=== PATIENT | female | born 1960 | race Caucasian/White ===

== ENCOUNTER 2016-06-14 15:54 | Observation (INO) | payer OTHER ==
[~2016-06-14] VITALS: Ht 157.5 cm; Wt 110.6 kg
--- NOTE | 2016-06-14 16:41 | DIAGNOSTIC IMAGING REPORT ---
PROCEDURE: XR CHEST 1 VIEW INDICATION: CHEST PAIN TECHNIQUE: Portable AP view 04:18 p.m. COMPARISON: None. FINDINGS: Lungs are clear. Mild cardiomegaly. Thorax is normal. IMPRESSION: 1. Mild cardiomegaly. Lungs clear.
--- NOTE | 2016-06-14 17:34 | ED ORDER SUMMARY ---
..... Patient: MAYRA BOONE OrderSheet [facility] VisitID: [id number] [place] [address] 55y, F Registration Date/Time: 06/14/2016 ORDER SHEET Weight: 113.3 kg (stated) Allergies: LIsinopril, Sulfa Antibiotics GENERAL ORDERS: Chest 1V Urgent (16:06 06/14/2016 Roberta SON) (Ack 16:11 BANDARoerdiaz) (16:17 KWilliams R.N.) [employer]working [employer] Hand (Continuous) (16:06/14/2016 Roberta SON) (16:19 KPage-Kuchan R.N.) CBC w Diff Urgent (16:06/14/2016 Roberta SON) (Ack 16:11 Shawn) (16:17 KWilliams R.N.) CMP Urgent (16:06/14/2016 Roberta SON) (Ack 16:11 BANDARoerner) (16:17 KWilliams R.N.) UA-Culture if indicated Urgent (16:06/14/2016 Roberta SON) (Ack 16:11 Shawn) (Collected 16:20 KPage-Kuchan R.N.) (16:21 KPage-Kuchan R.N.) PT with INR Urgent (16:06/14/2016 Roberta SON) (Ack 16:11 Shawn) (16:17 KWmedardoams R.N.) PTT Urgent (16:06/14/2016 Roberta SON) (Ack 16:11 Shawn) (16:17 KWilliams R.N.) Amylase Urgent (16:06/14/2016 Roberta SON) (Ack 16:11 BANDARoeyvette) (16:17 KWilliams R.N.) Lipase Urgent (16:06/14/2016 Roberta SON) (Ack 16:11 Shawn) (16:17 KWilliams R.N.) D-Dimer Urgent (16:06/14/2016 Roberta SON) (Ack 16:11 Shawn) (16:17 KWilliams R.N.) CPK Urgent (16:07 06/14/2016 Roberta SON) (Ack 16:11 Shawn) (16:17 Silvestre R.N.) Troponin-I Urgent (16:07 06/14/2016 Roberta SON) (Ack 16:11 Shawn) (16:17 Silvestre R.N.) BNP Urgent (16:07 06/14/2016 Roberta SON) (Ack 16:11 Shawn) (16:17 Silvestre R.N.) Oxygen (2 L/min) (NC) (16:07 06/14/2016 Roberta SON) (16:20 Pippa R.N.) Pulse oximeter (16:07 06/14/2016 Roberta SON) (16:17 Silvestre R.N.) EKG - ER Stat (16:07 06/14/2016 Roberta SON) (Ack 16:11 Shawn) (16:11 PWeiler ER Tech1) MEDICATION ORDERS: Aspirin PO 325 mg (NOW) (16:07 06/14/2016 Roberta SON) (16:19 KPaAparna R.N.) NitroGLYCERIN SL 0.4 mg (NOW, x3 PRN Chest Pain) (17:26 06/14/2016 Roberta SON) (Ack 17:34 KPakristian-Kia R.N.) (17:40 KPaAparna R.N.) IV FLUIDS: IV Saline Lock (16:07 06/14/2016 Roberta SON) (16:17 Silvestre R.N.) ORDER SHEET NOTES: [Electronically signed by Eric Ferraro MD (21:51 06/14/2016)] [Electronically signed by Beni Schmid R.N. (14:06/15/2016)] [Electronically locked/signed by Beni Schmid R.N. (14:06/15/2016)]
--- NOTE | 2016-06-14 17:34 | ED CLINICAL REPORT ---
Clinical Report - Physicians/Mid Levels [facility] [address] [place] [place] [address] 06/14/2016 15:56 Patient: MAYRA BOONE Time Seen: 16:03. Arrived- By private vehicle. Historian- patient. HISTORY OF PRESENT ILLNESS Chief Complaint: CHEST PAIN. At its maximum, severity described as 7 / 10. When seen in the E.D., severity described as 5 / 10. Modifying factors- (improves with lying flat). Not relieved by antacids. This started today at about 6 AM and is still present but is better now. It was abrupt in onset and has been constant and waxing/waning. Onset during sleep. It is described as sharp and it is described as located in the central chest area and radiating to the upper back. The patient has had nausea. No vomiting, difficulty breathing or diaphoresis. Similar symptoms previously: None. REVIEW OF SYSTEMS No chills, fever, sweats, calf pain or abdominal pain. No black stools, bloody stools, constipation, diarrhea or vomiting. She has had a cough (she attributes this to a recent cold). She has had pedal edema involving the left leg (for a couple of weeks). She has had mild nausea (she attributes this to her diabetes - chronically). She has had diabetic symptoms, including polydipsia, polyuria, polyphagia and fatigue. All systems otherwise negative, except as recorded above. PAST HISTORY PCP - Pagan at [facility]. Problems: Hypertension. Diabetes Mellitus. Additional Surgeries: Breast reduction. Carpal Tunnel Surgery. Hysterectomy. Knee Surgery. Renal Stone Manipulation. Medications: Losartan Potassium Oral (pt does not know dose). Hydrochlorothiazide Oral (pt does not know dose). Atorvastatin Calcium Oral (pt does not know dose). Allergies: LIsinopril. Sulfa Antibiotics. SOCIAL HISTORY Never smoker. No alcohol use or drug use. Residence: [facility] she lives with a family member. 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 FAMILY HISTORY No history of aortic aneurysm or dissection. Premature onset heart disease in first-degree relative (father and sibling). mother due to complications with a hiatal hernia. ADDITIONAL NOTES The nursing notes have been reviewed. PHYSICAL EXAM Vital Signs: 06/14/2016 16:07 BP: 128/58. HR: 87. RR: 19. O2 saturation: 97%. Temp: 98.7 F. Pain level now: 09/12. Have been reviewed. Appearance: Alert. She is morbidly obese. Eyes: Pupils equal, round and reactive to light. ENT: Pharynx normal. Neck: Normal inspection. Neck supple. CVS: Normal heart rate and rhythm. Heart sounds normal. Respiratory: No respiratory distress. Breath sounds normal. Abdomen: Soft and nontender. Bowel sounds normal. No organomegaly. No mass. Obese. Back: Normal external inspection. No CVA tenderness. Skin: Skin warm and dry. Normal skin color. No rash. Normal skin turgor. Extremities: Extremities exhibit normal ROM. No calf tenderness. No lower extremity edema. LABS, X-RAYS, AND EKG EKG: Rate: 82. Non-specific ST segment / T wave abnormalities. Changes present when compared to prior EKG. (09 October 2013 from [facility]). Chest X-ray: (IMPRESSION: 1. Mild cardiomegaly. Lungs clear.). The X-rays were interpreted by the radiologist and contemporaneously by me. Laboratory Tests: CBC w Diff: (ORLIN: 06/14/2016 16:05) ( MsgRcvd 06/14/2016 16:22) Final results Test Result Flag Units (Reference) WHITE BLOOD COUNT 7.6 K/uL (4.5-11.5) RED BLOOD COUNT 4.86 M/uL (4.00-5.20) HEMOGLOBIN 13.9 gm/dL (12.0-16.0) HEMATOCRIT 41.7 % (36.0-46.0) MEAN CELL VOLUME 86 fL (80-100) MEAN CORPUSCULAR HGB 29 pg (26-34) MEAN CORPUSCULAR HGB CONC 33 g/dL (31-37) RED CELL DISTRIBUTION WIDTH 13.6 % (11.6-14.8) PLATELET COUNT 255 K/uL (150-400) NEUTROPHIL % 59.7 % (50-75) LYMPH % 30.5 % (25-40) MONO % 6.8 % (3-14) EOSINOPHIL % 2.5 % (0-4) BASOPHIL % 0.5 % (0-2) PT with INR: (ORLIN: 06/14/2016 16:05) ( [facility] 16[facility]39) Final results Test Result Flag Units (Reference) INR 1.0 (0.8-1.2) Low Intensity Therapy: INR 1.5-2.0 PT range 18.5-23.1Mod.Intensity Therapy: INR 2.0-3.0 PT range 23.1-31.5High Intensity Therapy: INR 2.5-3.5 PT range 27.4-35.5High Intensity Therapy 2: INR 3.0-4.0 PT range 31.5-39.3 APTT 28 SECONDS (24-34) D-DIMER QUANTITATIVE 0.45 ug/mLFEU (0.27-0.52) The primary value of this quantitative assay relates toits negative predictive value (i.e. exclusion) of pulmonaryembolism/deep vein thrombosis/DIC.Elevated levels of d-dimer may also occur with:, age, cancer, inflammation, liver disease,post-op, infection, hematoma, coronary disease, peripheralarteriopathy, bleeding disorders and thrombolytic treatment.Results should be correlated with other clinical andradiological data.Testing Methodology: Latex Immunoassay BNP: (ORLIN: 06/14/2016 16:05) ( [facility] 06/14/2016 16:44) Final results Test Result Flag Units (Reference) B-TYPE NATRIURETIC PEPTIDE 28.4 pg/ml (5-100) CMP: (ORLIN: 06/14/2016 16:05) ( [facility] 06/14/2016 16:49) Final results Test Result Flag Units (Reference) GLUCOSE 132 H mg/dL (70-110) BUN 24 H mg/dL (7-18) CREATININE 0.9 mg/dL (0.6-1.3) Estimated GFR >60 mL/min Estimated GFR- >60 mL/min Note: Persistent reduction over 3 months in eGFR<60 mL/min/1.73 m2 defines CKD. Patients with eGFR values>=60 mL/min/1.73 m2 may also have CKD if evidence ofpersistent proteinuria. Additional information may be foundat www.kidney.org. SODIUM 139 mmol/L (136-145) POTASSIUM 3.3 L mmol/L (3.5-5.1) CHLORIDE 103 mmol/L (98-107) CARBON DIOXIDE 23 mmol/L (21-32) CALCIUM 9.4 mg/dL (8.5-10.1) TOTAL PROTEIN 8.3 H g/dL (6.4-8.2) ALBUMIN 3.7 g/dL (3.3-5.0) BILIRUBIN, TOTAL 0.5 mg/dL (0.0-1.0) ALKALINE PHOSPHATASE 96 U/L (46-116) AST (SGOT) 31 U/L (15-37) ALT (SGPT) 42 U/L (12-78) LIPASE 175 U/L (73-393) AMYLASE 36 U/L (25-115) CPK 129 U/L (24-260) TROPONIN I <0.05 ng/mL (0.00-1.5) TROPONIN REFERENCE RANGE:<0.1 NEGATIVE0.1-1.5 INDETERMINANT>1.5 POSITIVE . PROGRESS AND PROCEDURES Course of Care: I discussed the case initially with Dr. Blunt Marcia a oil burner technician at [facility]. She is uncertain whether Dr. Chaudhary will be rounding here tomorrow. Additionally it is not clear whether stress testing will be available in our facility tomorrow. She did state that the patient could follow up tomorrow for an office visit with Dr. Bryson to arrange further testing assuming that serial enzymes are negative. However, given her insurance with [facility] it is not clear whether they would pay for this in an outpatient setting. Therefore, I discussed the case with Dr. Larry Eli, a oil burner technician at [facility]. He did say that if the patient is not able to have a stress test and echo at our facility tomorrow and is not able to do it with Dr. Bryson because of insurance reasons that she should contact [facility]'s cardiology department at [phone] and they should be able to arrange completion of her studies. Patient is stable. Discussed case with hospitalist, (Luis). Reviewed test results and need for additional work-up. Agreed upon need for patient follow-up and decision to place in observation. Health care provider will see patient in hospital. Patient/family counseled. Old medical records ordered. Disposition orders written (in 2houses). Disposition: Admitted. Observation. CLINICAL IMPRESSION Chest pain. (Electronically signed by Eric Ferraro MD 06/14/2016 21:51)
--- NOTE | 2016-06-14 17:34 | ED CLINICAL REPORT ---
Clinical Report - Physicians/Mid Levels [facility] [address] [place] [address] 06/14/2016 15:56 Patient: MAYRA BOONE Time Seen: 16:03. Arrived- By private vehicle. Historian- patient. HISTORY OF PRESENT ILLNESS Chief Complaint: CHEST PAIN. At its maximum, severity described as 7 / 10. When seen in the E.D., severity described as 5 / 10. Modifying factors- (improves with lying flat). Not relieved by antacids. This started today at about 6 AM and is still present but is better now. It was abrupt in onset and has been constant and waxing/waning. Onset during sleep. It is described as sharp and it is described as located in the central chest area and radiating to the upper back. The patient has had nausea. No vomiting, difficulty breathing or diaphoresis. Similar symptoms previously: None. REVIEW OF SYSTEMS No chills, fever, sweats, calf pain or abdominal pain. No black stools, bloody stools, constipation, diarrhea or vomiting. She has had a cough (she attributes this to a recent cold). She has had pedal edema involving the left leg (for a couple of weeks). She has had mild nausea (she attributes this to her diabetes - chronically). She has had diabetic symptoms, including polydipsia, polyuria, polyphagia and fatigue. All systems otherwise negative, except as recorded above. PAST HISTORY PCP - Pagan at [facility]. Problems: Hypertension. Diabetes Mellitus. Additional Surgeries: Breast reduction. Carpal Tunnel Surgery. Hysterectomy. Knee Surgery. Renal Stone Manipulation. Medications: Losartan Potassium Oral (pt does not know dose). Hydrochlorothiazide Oral (pt does not know dose). Atorvastatin Calcium Oral (pt does not know dose). Allergies: LIsinopril. Sulfa Antibiotics. SOCIAL HISTORY Never smoker. No alcohol use or drug use. Residence: [facility] she lives with a family member. 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 FAMILY HISTORY No history of aortic aneurysm or dissection. Premature onset heart disease in first-degree relative (father and sibling). mother due to complications with a hiatal hernia. ADDITIONAL NOTES The nursing notes have been reviewed. PHYSICAL EXAM Vital Signs: 06/14/2016 16:07 BP: 128/58. HR: 87. RR: 19. O2 saturation: 97%. Temp: 98.7 F. Pain level now: 09/12. Have been reviewed. Appearance: Alert. She is morbidly obese. Eyes: Pupils equal, round and reactive to light. ENT: Pharynx normal. Neck: Normal inspection. Neck supple. CVS: Normal heart rate and rhythm. Heart sounds normal. Respiratory: No respiratory distress. Breath sounds normal. Abdomen: Soft and nontender. Bowel sounds normal. No organomegaly. No mass. Obese. Back: Normal external inspection. No CVA tenderness. Skin: Skin warm and dry. Normal skin color. No rash. Normal skin turgor. Extremities: Extremities exhibit normal ROM. No calf tenderness. No lower extremity edema. LABS, X-RAYS, AND EKG EKG: Rate: 82. Non-specific ST segment / T wave abnormalities. Changes present when compared to prior EKG. (09 October 2013 from [facility]). Chest X-ray: (IMPRESSION: 1. Mild cardiomegaly. Lungs clear.). The X-rays were interpreted by the radiologist and contemporaneously by me. Laboratory Tests: CBC w Diff: (ORLIN: 06/14/2016 16:05) ( MsgRcvd 06/14/2016 16:22) Final results Test Result Flag Units (Reference) WHITE BLOOD COUNT 7.6 K/uL (4.5-11.5) RED BLOOD COUNT 4.86 M/uL (4.00-5.20) HEMOGLOBIN 13.9 gm/dL (12.0-16.0) HEMATOCRIT 41.7 % (36.0-46.0) MEAN CELL VOLUME 86 fL (80-100) MEAN CORPUSCULAR HGB 29 pg (26-34) MEAN CORPUSCULAR HGB CONC 33 g/dL (31-37) RED CELL DISTRIBUTION WIDTH 13.6 % (11.6-14.8) PLATELET COUNT 255 K/uL (150-400) NEUTROPHIL % 59.7 % (50-75) LYMPH % 30.5 % (25-40) MONO % 6.8 % (3-14) EOSINOPHIL % 2.5 % (0-4) BASOPHIL % 0.5 % (0-2) PT with INR: (ORLIN: 06/14/2016 16:05) ( [facility] 06/14/2016 16:39) Final results Test Result Flag Units (Reference) INR 1.0 (0.8-1.2) Low Intensity Therapy: INR 1.5-2.0 PT range 18.5-23.1Mod.Intensity Therapy: INR 2.0-3.0 PT range 23.1-31.5High Intensity Therapy: INR 2.5-3.5 PT range 27.4-35.5High Intensity Therapy 2: INR 3.0-4.0 PT range 31.5-39.3 APTT 28 SECONDS (24-34) D-DIMER QUANTITATIVE 0.45 ug/mLFEU (0.27-0.52) The primary value of this quantitative assay relates toits negative predictive value (i.e. exclusion) of pulmonaryembolism/deep vein thrombosis/DIC.Elevated levels of d-dimer may also occur with:, age, cancer, inflammation, liver disease,post-op, infection, hematoma, coronary disease, peripheralarteriopathy, bleeding disorders and thrombolytic treatment.Results should be correlated with other clinical andradiological data.Testing Methodology: Latex Immunoassay BNP: (ORLIN: 06/14/2016 16:05) ( [facility] 06/14/2016 16:44) Final results Test Result Flag Units (Reference) B-TYPE NATRIURETIC PEPTIDE 28.4 pg/ml (5-100) CMP: (ORLIN: 06/14/2016 16:05) ( [facility] 06/14/2016 16:49) Final results Test Result Flag Units (Reference) GLUCOSE 132 H mg/dL (70-110) BUN 24 H mg/dL (7-18) CREATININE 0.9 mg/dL (0.6-1.3) Estimated GFR >60 mL/min Estimated GFR- >60 mL/min Note: Persistent reduction over 3 months in eGFR<60 mL/min/1.73 m2 defines CKD. Patients with eGFR values>=60 mL/min/1.73 m2 may also have CKD if evidence ofpersistent proteinuria. Additional information may be foundat [email or web address].org. SODIUM 139 mmol/L (136-145) POTASSIUM 3.3 L mmol/L (3.5-5.1) CHLORIDE 103 mmol/L (98-107) CARBON DIOXIDE 23 mmol/L (21-32) CALCIUM 9.4 mg/dL (8.5-10.1) TOTAL PROTEIN 8.3 H g/dL (6.4-8.2) ALBUMIN 3.7 g/dL (3.3-5.0) BILIRUBIN, TOTAL 0.5 mg/dL (0.0-1.0) ALKALINE PHOSPHATASE 96 U/L (46-116) AST (SGOT) 31 U/L (15-37) ALT (SGPT) 42 U/L (12-78) LIPASE 175 U/L (73-393) AMYLASE 36 U/L (25-115) CPK 129 U/L (24-260) TROPONIN I <0.05 ng/mL (0.00-1.5) TROPONIN REFERENCE RANGE:<0.1 NEGATIVE0.1-1.5 INDETERMINANT>1.5 POSITIVE . PROGRESS AND PROCEDURES Course of Care: I discussed the case initially with Dr. Blunt Marcia a diet tech at [facility]. She is uncertain whether Dr. Chaudhary will be rounding here tomorrow. Additionally it is not clear whether stress testing will be available in our facility tomorrow. She did state that the patient could follow up tomorrow for an office visit with Dr. Bryson to arrange further testing assuming that serial enzymes are negative. However, given her insurance with [facility] it is not clear whether they would pay for this in an outpatient setting. Therefore, I discussed the case with Dr. Larry Eli, a diet tech at [facility]. He did say that if the patient is not able to have a stress test and echo at our facility tomorrow and is not able to do it with Dr. Bryson because of insurance reasons that she should contact [facility]'s cardiology department at [phone] and they should be able to arrange completion of her studies. Patient is stable. Discussed case with hospitalist, (Luis). Reviewed test results and need for additional work-up. Agreed upon need for patient follow-up and decision to place in observation. Health care provider will see patient in hospital. Patient/family counseled. Old medical records ordered. Disposition orders written (in [employer]). Disposition: Admitted. Observation. CLINICAL IMPRESSION Chest pain. (Electronically signed by Eric Ferraro MD 06/14/2016 21:51)
--- NOTE | 2016-06-14 17:34 | ED NURSING NOTES ---
Clinical Report - Nurses [facility] [address] [place] [address] 06/14/2016 15:56 Patient: MAYRA BOONE TRIAGE Triage time 15:58 Jun 14 2016. Acuity: LEVEL 2. Chief Complaint: SHORTNESS OF BREATH (chest pain ss, describes as "sharp" no change with inspiration with assoc symptoms of mid back pain, nausea and sob). Alert. No acute distress. SEPSIS SCREEN: Sepsis Screen: negative. Negative (no infection suspected/documented). --16:13 Beni Schmid R.N. 16:11 06/14/16. BP: 151/74. HR: 87. RR: 19. O2 saturation: 97%. Temp: 98.1 F. Pain level now 7/10. --14:01 Beni Schmid R.N. Weight: 113.3 kg stated. Height/Length: 62 inches Per Patient. BMI: 45.7. --16:12 Beni Schmid R.N. Medications Atorvastatin Calcium Oral (pt does not know dose). --16:04 Beni Schmid R.N. Hydrochlorothiazide Oral (pt does not know dose). --16:05 Beni Schmid R.N. Losartan Potassium Oral (pt does not know dose). --16:05 Beni Schmid R.N. Medication/allergy information source: the patient. --16:13 Beni Schmid R.N. Allergies LIsinopril. --16:04 Beni Schmid R.N. Sulfa Antibiotics. --16:04 Beni Schmid R.N. History Onset was abrupt. Started while sleeping. Symptoms are constant and still present (cp woke pt this morning at 0600). She has had difficulty breathing and nausea. ( pt also has a "cold" at this time). Treatment SOLAR CONSULTANT: (omperazole). PAST MEDICAL HX: Diabetes mellitus (pts morning glucose at 0730 today 243, type 2 with insulin). Hypertension. Immunizations: up-to-date. The patient has had a hysterectomy. Denies current . SOCIAL HX: Never smoker. No alcohol use or drug use. No infectious disease exposure. ABUSE ASSESSMENT: No report of abuse. SELF HARM ASSESSMENT: A self harm assessment was performed. The patient answered "no" to the question "Have you recently felt down, depressed, or hopeless?", "Have you noticed less interest or pleasure in doing things?", "Do you have thoughts of harming or killing yourself?", "Are you here because you tried to hurt yourself?", "Have you ever tried to hurt yourself before today?", "Have you recently had thoughts about harming or killing others?" and "Do you have any dangerous items in your possession?". FALL RISK ASSESSMENT: Fall risk assessment completed. No fall risk identified. NUTRITIONAL RISK ASSESSMENT: The nutritional risk assessment revealed no deficiencies. FUNCTIONAL ASSESSMENT: Functional assessment: no impairments noted. LEARNING NEEDS ASSESSMENT: The learning needs assessment revealed no barriers. SKIN INTEGRITY ASSESSMENT: Skin integrity risk assessment completed. No skin integrity risk identified. --16:13 Beni Schmid R.N. ADDITIONAL SURGERIES: Breast reduction. Carpal Tunnel Surgery. Hysterectomy. Knee Surgery. Renal Stone Manipulation. --16:07 Beni Schmid R.N. Interventions ID and allergy band on patient. ID band checked. CHEST PAIN protocol initiated at triage. To treatment room. --16:13 Beni Schmid R.N. PHYSICAL ASSESSMENT GENERAL / NEURO / PSYCH: Alert. Oriented X 4. Appears in no acute distress. HEENT: Mucous membranes are pink. RESPIRATORY: Respirations not labored. Breath sounds within normal limits. CVS: Cardiac rhythm: no ectopy noted (SR). Heart sounds within normal limits. Pulses within normal limits. Capillary refill less than 2 seconds. GI / : Abdomen soft and nontender. EXTREMITIES: Lower extremity edema. pt reports swelling to bilat feet "for the past couple of weeks". SKIN: Skin is warm and dry. --16:14 Beni Schmid R.N. NURSING PROGRESS NOTES phototypesetting equipment monitor, pulse oximeter and NIBP monitor placed on patient; lunchroom monitor- Lead II and V5; monitor alarms on. EKG was performed by a tech and shown to the ED physician. Checked patient name and birthdate. Blood samples drawn from the right antecubital space peripheral IV site with Vacutainer by nurse per protocol ; labeled in presence of the patient and sent to lab: rainbow set. Line flushed with 10 mL normal saline post blood draw. Patient gowned. Head of bed elevated. Reassurance given to the patient. Two patient identifiers checked. Call light placed in reach of patient. Side rails up x 1. Bed placed in lowest position. Brakes of bed on. Patient ready for evaluation- chart flagged. --16:16 Beni Schmid R.N. 16:09 06/14/2016 Aspirin PO Tablets 325 mg given. Allergies verified and confirmed 5 rights. --16:19 Beni Schmid R.N. 16:12 06/14/2016 Site #1 started via IV in the right antecubital space with an 18g angiocath, with aseptic technique and good blood return; one attempt. Blood drawn: rainbow set. Labeled in the presence of the patient and sent to the lab. Saline lock flushed with 10 mL saline. --16:17 Ruben Brown R.N. Portable chest x-ray performed. Patient ready for evaluation- chart flagged. --16:18 Beni Schmid R.N. ( warm blanket provided for pt comfort, lights down per pt request, pt in SR on monitor, waiting MD stuart). --16:24 Beni Schmid R.N. EKG time: (1610). EKG was ordered, performed by a tech and shown to the ED physician. --16:38 Santiago Cadena ER Tech1 17:39 06/14/2016 Nitroglycerin SL Tablets 0.4 mg given. Allergies verified and confirmed 5 rights. (1st dose for pain 05/13). --17:40 Beni Schmid R.N. 17:40 06/14/16. BP: 151/59. HR: 90. RR: 18. O2 saturation: 98% on nasal cannula at 2 liters/minute. Pain level now: 310. Additional comments: 1st dose of nitro sl/0.4mg. --17:41 Beni Schmid R.N. Cardiac rhythm: (SR). --17:41 Beni Shcmid R.N. Cardiac rhythm: (SR). Reassessment after medication administered (pt after first nitro, pain down to "maybe a 2/10"). She is resting quietly and has had no adverse reaction. Patient waiting for admit bed. --17:47 Beni Schmid R.N. 17:45 06/14/16. BP: 136/67. HR: 93. RR: 18. O2 saturation: 96% on nasal cannula at 2 liters/minute. Pain level now: 04/15. Additional comments: 2nd nitro given for pain 04/15. --17:47 Beni Schmid R.N. 17:45 06/14/2016 Nitroglycerin SL Response: pain is improving. Symptoms have improved the patient feels better. --17:49 Beni Schmid R.N. 17:49 06/14/2016 Nitroglycerin SL Tablets 0.4 mg given. Allergies verified and confirmed 5 rights. (2nd nitro for pain 04/15). --17:49 Beni Schmid R.N. Reassessment after medication administered (pain free after 2nd nitro). She has had no adverse reaction. --17:52 Beni Schmid R.N. 17:50 06/14/16. BP: 140/69. HR: 91. RR: 18. O2 saturation: 98% on nasal cannula at 2 liters/minute. --17:52 Beni Schmid R.N. ( pt in SR, no ectopy noted on monitor, pt has contacted her family and they are aware she is an admit to hospital, pt remains pain free after 2 nitro, waiting on admission.). --18:34 Beni Schmid R.N. 18:34 06/14/16. BP: 130/62. HR: 84 (regular). RR: 17. O2 saturation: 97% on nasal cannula at 2 liters/minute. Pain level now: 0/10. --18:35 Beni Schmid R.N. 19:26 Patient assisted to [facility]. --19:26 McQuoid, Verna, ER Tech1 Oxygen administered by nasal cannula at 2 liters (cont on 2L per MD order). Monitoring of patient in place. Reassurance given. Call light placed in reach. Side rails up x 2. Bed placed in lowest position. Brakes of bed on. ( preparing pt for admit). --19:32 Beni Schmid R.N. 19:32 06/14/16. BP: 129/60. HR: 81. RR: 17. O2 saturation: 97%. Pain level now 0/10. --19:32 Beni Schmid R.N. DISPOSITION / DISCHARGE Departure time: 19:57. Report was given to a nurse via a phone call. Report included patient's care, treatment, medications, reviewed medication reconcilliation, and condition (including any recent changes or anticipated changes). All questions were answered. Report was acknowledged and care was transferred. --19:57 Saeed Borjas 19:58 06/14/16. BP: 148/79. HR: 77. RR: 16. O2 saturation: 98%. Temp: deferred. Pain level now: 0/10. --19:59 Saeed Borjas Locked/Released at 06/15/2016 14:01 by Beni Schmid R.N.
--- NOTE | 2016-06-14 17:34 | ED ORDER SUMMARY ---
..... Patient: MAYRA BOONE OrderSheet [facility] VisitID: [id number] [place] [address] 55y, F Registration Date/Time: 06/14/2016 ORDER SHEET Weight: 113.3 kg (stated) Allergies: LIsinopril, Sulfa Antibiotics GENERAL ORDERS: Chest 1V Urgent (16:06 06/14/2016 Roberta SON) (Ack 16:11 BANDARoerdiaz) (16:17 KWilliams R.N.) Beef Boner (Continuous) (16:06/14/2016 Roberta SON) (16:19 KPage-Kuchan R.N.) CBC w Diff Urgent (16:06/14/2016 Roberta SON) (Ack 16:11 Shawn) (16:17 KWilliams R.N.) CMP Urgent (16:06/14/2016 Roberta SON) (Ack 16:11 BANDARoerner) (16:17 KWilliams R.N.) UA-Culture if indicated Urgent (16:06/14/2016 Roberta SON) (Ack 16:11 Shawn) (Collected 16:20 KPage-Kuchan R.N.) (16:21 KPage-Kuchan R.N.) PT with INR Urgent (16:06/14/2016 Roberta SON) (Ack 16:11 Shawn) (16:17 KWmedardoams R.N.) PTT Urgent (16:06/14/2016 Roberta SON) (Ack 16:11 Shawn) (16:17 KWilliams R.N.) Amylase Urgent (16:06/14/2016 Roberta SON) (Ack 16:11 BANDARoeyvette) (16:17 KWilliams R.N.) Lipase Urgent (16:06/14/2016 Roberta SON) (Ack 16:11 Shawn) (16:17 KWilliams R.N.) D-Dimer Urgent (16:06/14/2016 Roberta SON) (Ack 16:11 Shawn) (16:17 KWilliams R.N.) CPK Urgent (16:07 06/14/2016 Roberta SON) (Ack 16:11 Shawn) (16:17 Silvestre R.N.) Troponin-I Urgent (16:07 06/14/2016 Roberta SON) (Ack 16:11 Shawn) (16:17 Silvestre R.N.) BNP Urgent (16:07 06/14/2016 Roberta SON) (Ack 16:11 Shawn) (16:17 Silvestre R.N.) Oxygen (2 L/min) (NC) (16:07 06/14/2016 Roberta SON) (16:20 Pippa R.N.) Pulse oximeter (16:07 06/14/2016 Roberta SON) (16:17 Silvestre R.N.) EKG - ER Stat (16:07 06/14/2016 Roberta SON) (Ack 16:11 Shawn) (16:11 PWeiler ER Tech1) MEDICATION ORDERS: Aspirin PO 325 mg (NOW) (16:07 06/14/2016 Roberta SON) (16:19 KPaAparna R.N.) NitroGLYCERIN SL 0.4 mg (NOW, x3 PRN Chest Pain) (17:26 06/14/2016 Roberta SON) (Ack 17:34 KPakristian-Kia R.N.) (17:40 KPaAparna R.N.) IV FLUIDS: IV Saline Lock (16:07 06/14/2016 Roberta SON) (16:17 Silvestre R.N.) ORDER SHEET NOTES: [Electronically signed by Eric Ferraro MD (21:51 06/14/2016)] [Electronically signed by Beni Schmid R.N. (14:06/15/2016)] [Electronically locked/signed by Beni Schmid R.N. (14:06/15/2016)]
--- NOTE | 2016-06-14 17:34 | ED NURSING NOTES ---
Clinical Report - Nurses [facility] [address] [place] [address] 06/14/2016 15:56 Patient: MAYRA BOONE TRIAGE Triage time 15:58 Jun 14 2016. Acuity: LEVEL 2. Chief Complaint: SHORTNESS OF BREATH (chest pain ss, describes as "sharp" no change with inspiration with assoc symptoms of mid back pain, nausea and sob). Alert. No acute distress. SEPSIS SCREEN: Sepsis Screen: negative. Negative (no infection suspected/documented). --16:13 Beni Schmid R.N. 16:11 06/14/16. BP: 151/74. HR: 87. RR: 19. O2 saturation: 97%. Temp: 98.1 F. Pain level now 7/10. --14:01 Beni Schmid R.N. Weight: 113.3 kg stated. Height/Length: 62 inches Per Patient. BMI: 45.7. --16:12 Beni Schmid R.N. Medications Atorvastatin Calcium Oral (pt does not know dose). --16:04 Beni Schmid R.N. Hydrochlorothiazide Oral (pt does not know dose). --16:05 Beni Schmid R.N. Losartan Potassium Oral (pt does not know dose). --16:05 Beni Schmid R.N. Medication/allergy information source: the patient. --16:13 Beni Schmid R.N. Allergies LIsinopril. --16:04 Beni Schmid R.N. Sulfa Antibiotics. --16:04 Beni Schmid R.N. History Onset was abrupt. Started while sleeping. Symptoms are constant and still present (cp woke pt this morning at 0600). She has had difficulty breathing and nausea. ( pt also has a "cold" at this time). Treatment DIRECTOR OF REGIONAL SALES: (omperazole). PAST MEDICAL HX: Diabetes mellitus (pts morning glucose at 0730 today 243, type 2 with insulin). Hypertension. Immunizations: up-to-date. The patient has had a hysterectomy. Denies current . SOCIAL HX: Never smoker. No alcohol use or drug use. No infectious disease exposure. ABUSE ASSESSMENT: No report of abuse. SELF HARM ASSESSMENT: A self harm assessment was performed. The patient answered "no" to the question "Have you recently felt down, depressed, or hopeless?", "Have you noticed less interest or pleasure in doing things?", "Do you have thoughts of harming or killing yourself?", "Are you here because you tried to hurt yourself?", "Have you ever tried to hurt yourself before today?", "Have you recently had thoughts about harming or killing others?" and "Do you have any dangerous items in your possession?". FALL RISK ASSESSMENT: Fall risk assessment completed. No fall risk identified. NUTRITIONAL RISK ASSESSMENT: The nutritional risk assessment revealed no deficiencies. FUNCTIONAL ASSESSMENT: Functional assessment: no impairments noted. LEARNING NEEDS ASSESSMENT: The learning needs assessment revealed no barriers. SKIN INTEGRITY ASSESSMENT: Skin integrity risk assessment completed. No skin integrity risk identified. --16:13 Beni Schmid R.N. ADDITIONAL SURGERIES: Breast reduction. Carpal Tunnel Surgery. Hysterectomy. Knee Surgery. Renal Stone Manipulation. --16:07 Beni Schmid R.N. Interventions ID and allergy band on patient. ID band checked. CHEST PAIN protocol initiated at triage. To treatment room. --16:13 Beni Schmid R.N. PHYSICAL ASSESSMENT GENERAL / NEURO / PSYCH: Alert. Oriented X 4. Appears in no acute distress. HEENT: Mucous membranes are pink. RESPIRATORY: Respirations not labored. Breath sounds within normal limits. CVS: Cardiac rhythm: no ectopy noted (SR). Heart sounds within normal limits. Pulses within normal limits. Capillary refill less than 2 seconds. GI / : Abdomen soft and nontender. EXTREMITIES: Lower extremity edema. pt reports swelling to bilat feet "for the past couple of weeks". SKIN: Skin is warm and dry. --16:14 Beni Schmid R.N. NURSING PROGRESS NOTES floor molder, pulse oximeter and NIBP monitor placed on patient; cardiac sonographer- Lead II and V5; monitor alarms on. EKG was performed by a tech and shown to the ED physician. Checked patient name and birthdate. Blood samples drawn from the right antecubital space peripheral IV site with Vacutainer by nurse per protocol ; labeled in presence of the patient and sent to lab: rainbow set. Line flushed with 10 mL normal saline post blood draw. Patient gowned. Head of bed elevated. Reassurance given to the patient. Two patient identifiers checked. Call light placed in reach of patient. Side rails up x 1. Bed placed in lowest position. Brakes of bed on. Patient ready for evaluation- chart flagged. --16:16 Beni Shcmid R.N. 16:09 06/14/2016 Aspirin PO Tablets 325 mg given. Allergies verified and confirmed 5 rights. --16:19 Beni Schmid R.N. 16:12 06/14/2016 Site #1 started via IV in the right antecubital space with an 18g angiocath, with aseptic technique and good blood return; one attempt. Blood drawn: rainbow set. Labeled in the presence of the patient and sent to the lab. Saline lock flushed with 10 mL saline. --16:17 Ruben Brown R.N. Portable chest x-ray performed. Patient ready for evaluation- chart flagged. --16:18 Beni Schmid R.N. ( warm blanket provided for pt comfort, lights down per pt request, pt in SR on monitor, waiting MD stuart). --16:24 Beni Schmid R.N. EKG time: (1610). EKG was ordered, performed by a tech and shown to the ED physician. --16:38 Santiago Cadena ER Tech1 17:39 06/14/2016 Nitroglycerin SL Tablets 0.4 mg given. Allergies verified and confirmed 5 rights. (1st dose for pain 05/13). --17:40 Beni Schmid R.N. 17:40 06/14/16. BP: 151/59. HR: 90. RR: 18. O2 saturation: 98% on nasal cannula at 2 liters/minute. Pain level now: 310. Additional comments: 1st dose of nitro sl/0.4mg. --17:41 Beni Schmid R.N. Cardiac rhythm: (SR). --17:41 Beni Schmid R.N. Cardiac rhythm: (SR). Reassessment after medication administered (pt after first nitro, pain down to "maybe a 2/10"). She is resting quietly and has had no adverse reaction. Patient waiting for admit bed. --17:47 Beni Schmid R.N. 17:45 06/14/16. BP: 136/67. HR: 93. RR: 18. O2 saturation: 96% on nasal cannula at 2 liters/minute. Pain level now: 04/15. Additional comments: 2nd nitro given for pain 04/15. --17:47 Beni Schmid R.N. 17:45 06/14/2016 Nitroglycerin SL Response: pain is improving. Symptoms have improved the patient feels better. --17:49 Beni Schmid R.N. 17:49 06/14/2016 Nitroglycerin SL Tablets 0.4 mg given. Allergies verified and confirmed 5 rights. (2nd nitro for pain 04/15). --17:49 Beni Schmid R.N. Reassessment after medication administered (pain free after 2nd nitro). She has had no adverse reaction. --17:52 Beni Schmid R.N. 17:50 06/14/16. BP: 140/69. HR: 91. RR: 18. O2 saturation: 98% on nasal cannula at 2 liters/minute. --17:52 Beni Schmid R.N. ( pt in SR, no ectopy noted on monitor, pt has contacted her family and they are aware she is an admit to hospital, pt remains pain free after 2 nitro, waiting on admission.). --18:34 Beni Schmid R.N. 18:34 06/14/16. BP: 130/62. HR: 84 (regular). RR: 17. O2 saturation: 97% on nasal cannula at 2 liters/minute. Pain level now: 0/10. --18:35 Beni Schmid R.N. 19:26 Patient assisted to [facility]. --19:26 McQuoid, Verna, ER Tech1 Oxygen administered by nasal cannula at 2 liters (cont on 2L per MD order). Monitoring of patient in place. Reassurance given. Call light placed in reach. Side rails up x 2. Bed placed in lowest position. Brakes of bed on. ( preparing pt for admit). --19:32 Beni Schmid R.N. 19:32 06/14/16. BP: 129/60. HR: 81. RR: 17. O2 saturation: 97%. Pain level now 0/10. --19:32 Beni Schmid R.N. DISPOSITION / DISCHARGE Departure time: 19:57. Report was given to a nurse via a phone call. Report included patient's care, treatment, medications, reviewed medication reconcilliation, and condition (including any recent changes or anticipated changes). All questions were answered. Report was acknowledged and care was transferred. --19:57 Saeed Borjas 19:58 06/14/16. BP: 148/79. HR: 77. RR: 16. O2 saturation: 98%. Temp: deferred. Pain level now: 0/10. --19:59 Saeed Borjas Locked/Released at 06/15/2016 14:01 by Beni Schmid R.N.
[2016-06-14] MEDS ORDERED: COZAAR25 MG PO (18:22)
[2016-06-14] MEDS ORDERED: HCTZ PO (18:22)
[2016-06-14] MEDS ORDERED: ATORVASTATIN CA10 MG PO (18:22)
--- NOTE | 2016-06-14 19:30 | Progress Note ---
Subjective General 55 y.o. female with strong family hx of CAD, DM poor control, in for CP r/o [place] obs. ? stress test tomorrow and ? at Jaspreet Eli MD [phone] if can't be done here
--- NOTE | 2016-06-14 19:30 | Progress Note ---
Subjective General 55 y.o. female with strong family hx of CAD, DM poor control, in for CP r/o [place] obs. ? stress test tomorrow and ? at Jaspreet Eli MD [phone] if can't be done here
--- NOTE | 2016-06-14 20:23 | HISTORY AND PHYSICAL ---
ADMITTED: 06/14/2016 CHIEF COMPLAINT: 1. Chest discomfort HISTORY OF PRESENT ILLNESS: The patient states that this morning she started having chest discomfort, got maximum severity of 7/10 and then she did not get better with antacids, having a sharp pain located in the central chest, radiating a little bit to the upper back. She decided to go in to the emergency department. She was given a couple of nitroglycerin, at which point her chest discomfort went away completely about a half hour after her nitroglycerin or prior to that even, just after nitro, which was a half hour prior to my interview with her. She states that chest discomfort started many hours ago, at 6 a.m., abrupt onset, sharp, kind of waxing and waning throughout the day, kind of woke up with it this morning. MEDICAL/SURGICAL HISTORY: Past medical history: Primary doctor is Dr. Pagan. She has had hypertension and diabetes. She has had surgeries with breast reduction, carpal tunnel surgery, hysterectomy. She has also had knee surgery, renal stone manipulation. MEDICATIONS: 1. Losartan 100 mg p.o. daily. 2. Hydrochlorothiazide 25 mg p.o. daily. 3. Atorvastatin 40 mg p.o. daily. 4. Insulin N 45 units subcutaneous b.i.d. ALLERGIES: 1. LISINOPRIL. 2. SULFA. SOCIAL HISTORY: She is nonsmoker, nondrinker, nondrugger. She lives at [facility] with a family member. 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 FAMILY HISTORY: Father had first heart attack at age 38. She had a sister as well who had heart issues at age 42. Mom of congestive heart failure at 72. Father of heart issues age 74. REVIEW OF SYSTEMS: She denies any fevers, sweats, calf pain, abdominal pain. She notes no black or bloody stools. No nausea, vomiting, no diarrhea. She has had a little bit of a cough, some cold symptoms. She has some lower extremity edema that has also been going on for weeks, mild nausea, related to some diabetes and her diabetes has not been under very good control with A1c around 9. PHYSICAL EXAMINATION: GENERAL APPEARANCE: She is alert, cooperative, morbidly obese. VITAL SIGNS: Blood pressure 128/58, heart rate of 87, respirations 19, saturating 97% room air, temperature 98.7 and pain 0/10. HEENT: Extraocular movements intact. Pupils equal, round, reactive to light. Oropharynx is clear with moist mucous membranes. NECK: Supple without lymphadenopathy. Ears are with normal canals bilateral. HEART: Regular rate and rhythm. No murmur. ABDOMEN: Soft, it is nontender, nondistended. RESPIRATORY: She is clear to auscultation bilaterally. No wheezes, rales or rhonchi. CHEST: She does have a little bit of chest discomfort with pressing over her costochondral region; however, she states that this is not the chest discomfort she was having earlier. BACK: Normal inspection. No CVA tenderness. SKIN: Warm, dry and intact. EXTREMITIES: Normal range of motion, normal tone and moves all of them well. LAB/IMAGING: Chest x-ray: Shows mild cardiomegaly, otherwise clear. EKG: Normal sinus without acute ST-T wave changes. White count of 7.6, hematocrit 41.7, platelets of 255,000. INR 1.0. D-dimer is 0.45. BNP of 28. CMP: Glucose 132, BUN of 24, creatinine of 0.9, sodium 139, potassium 3.3, chloride of 103, carbon dioxide 23, calcium 9.4, total protein 8.3. Albumin 3.7, bili 0.5, alk phos 96, AST of 31, ALT of 42, lipase of 175, amylase 36. CPK 129. Troponin I less than 0.05. IMPRESSION: 1. This is a 55-year-old female with strong family history of heart disease at a young age with diabetes and hypertension, who presented to the emergency department with chest discomfort. She had improvement from around 7/10, going to 0 chest discomfort after nitroglycerin. PLAN: To admit her to the hospital, rule out myocardial infarction overnight. If she rules out, anticipate that she will need a stress test of some sort tomorrow. There is Dr. Larry Eli at [phone] who states that if we are unable to get a stress test set up for her tomorrow at our facility that they might be able to do a stress test at his facility there at [facility]. I anticipate that her rule out will be negative as she has had chest discomfort that has gone on for a number of hours already and her current troponin I is very reassuring; however, she is less than 8 hours symptoms free at this point, so we will rule her out, anticipate that she will do better overnight. We will treat her with Lantus in the hospital, as well as sliding scale insulin for her diabetes and continue with her home medications as well. CODE STATUS: FULL CODE.
[2016-06-14 20:59] VITALS: BP 160/82
--- NOTE | 2016-06-14 21:10 | NUR ---
SPOKE WITH DR PATRICIA REGARDING PTS PRESSURE OF 160/82 - NEW ORDERS RECIEVED TO START LOSARTAN PO MILAN - PT HAS NOT TAKE THIS MEDICATION FOR A COUPLE DAYS.
--- NOTE | 2016-06-14 21:31 | NUR ---
PT WAS ADMITTED TO FLOOR - ROOM 303 AT APPROXIMATELY 2015 - ALERT AND ORIENTED, STABLE ON FEET, AMBULATED FROM [facility] TO BED. NO COMPLAINTS OF CHEST PAIN, NO HEART PALPITATIONS, NO NAUSEA, NO PAIN. HOOKED UP TO TELE - SINUS RHYTHM. NO SOB. ORIENTED TO ROOM. PT GIVEN AN HS SNACK/DINNER - 1/2 TURKEY SANDWICH, STRING CHEESE AND SUGAR FREE JELLO. NO NOVOLOG INDICATED PER BLOOD GLUCOSE READING. CALL LIGHT WITHIN REACH. NO REQUESTS AT THIS TIME.
[2016-06-14 22:33] VITALS: BP 145/64
[2016-06-15] VITALS (7 sets, daily range): BP systolic 118–172; BP diastolic 51–99
--- NOTE | 2016-06-15 06:19 | NUR ---
NO COMPLAINTS OF CHEST PAIN THROUGH OUT THE NIGHT, REMAINS IN SINUS RHYTHM, HEART RATE AT 70. PT MEDICATED WITH PO TYLENOL FOR HEADACHE - EFFCTIVE. PT SLEPT WELL THROUGH OUT THE NIGHT. LAST TROP AT 0220 LESS THAN 0.05.
--- NOTE | 2016-06-15 07:01 | NUR ---
PT COMPLAINT OF CHEST PAIN AT A 3/10 DESCRIBED PRESSURE. NO CHANGES WITH DEEP BREATHING, NO TENDER TO TOUCH. NO SOB. SMALL AMOUNT OF NAUSEA. PT GIVEN NITRO SL - BLOOD PRESSURE AT 172/99.
--- NOTE | 2016-06-15 07:05 | NUR ---
DR HUNT AT BEDSIDE TO ASSESS PT.
--- NOTE | 2016-06-15 07:20 | Progress Note ---
Subjective General 55 y.o. female with strong family hx of CAD, DM poor control, obesity, sleep apnea(not on cpap), GERD, ?hx TIA? in for CP r/o [place] obs. ? stress test today and ? at [facility] Eli MD [phone] if can't be done here. Pt reports recurrent 3/10 CP today associated with inmtermittent nausea. Not better this AM with ntg x 3. CP in ER resolved with ntg. Denies sob, palp, dizzy, sweats. Physical Exam Vital Signs / I&Os Vital Signs Date Time Temp Pulse Resp B/P Pulse O2 O2 Flow FiO2 Ox Delivery Rate 06/15 0711 82 17 157/86 98 Room Air 06/15 0706 157/89 06/15 0701 172/99 06/15 0655 97.7 70 22 163/92 95 Room Air 0.0 06/15 0224 97.3 82 18 135/63 98 Room Air 0.0 06/143 98.6 83 22 145/64 96 Room Air 0.0 06/14 2058 98.4 76 20 160/82 96 06/14 2033 Room Air I&O 06/14 0800 06/14 1600 06/15 0000 Intake Total 120 Output Total Balance 120 General Appearance Alert, Oriented X3, Cooperative, Mild distress Lungs Clear to auscultation Cardiovascular Regular rate and rhythm Abdomen Normal bowel sounds, Soft, No tenderness Extremities No edema Skin No Rashes LAB Results Laboratory Tests 06/14 06/14 06/14 1605 1605 1830 Chemistry Plasma Sodium (136 - 145 mmol/L) 139 Plasma Potassium (3.5 - 5.1 mmol/L) 3.3 Plasma Chloride (98 - 107 mmol/L) 103 CO2 (Enzymatic) (21 - 32 mmol/L) 23 BUN (7 - 18 mg/dL) 24 Creatinine (0.6 - 1.3 mg/dL) 0.9 Est GFR ( Amer) (mL/min) >60 Est GFR (Non-Af Amer) (mL/min) >60 Glucose (70 - 110 mg/dL) 132 Plasma Calcium (8.5 - 10.1 mg/dL) 9.4 Total Bilirubin (0.0 - 1.0 mg/dL) 0.5 AST (15 - 37 U/L) 31 ALT (12 - 78 U/L) 42 Alkaline Phosphatase (46 - 116 U/L) 96 Creatine Kinase (24 - 260 U/L) 129 Troponin (0.00 - 1.5 ng/mL) <0.05 <0.05 B-Natriuretic Peptide (5 - 100 pg/ml) 28.4 Total Protein (6.4 - 8.2 g/dL) 8.3 Albumin (3.3 - 5.0 g/dL) 3.7 Amylase (25 - 115 U/L) 36 Lipase (73 - 393 U/L) 175 Coagulation INR (0.8 - 1.2) 1.0 APTT (24 - 34 SECONDS) 28 D-Dimer, Quantitative (0.27 - 0.52 ug/mLFEU) 0.45 Hematology WBC (4.5 - 11.5 K/uL) 7.6 RBC (4.00 - 5.20 M/uL) 4.86 Hgb (12.0 - 16.0 gm/dL) 13.9 Hct (36.0 - 46.0 %) 41.7 MCV (80 - 100 fL) 86 MCH (26 - 34 pg) 29 RDW (11.6 - 14.8 %) 13.6 Neut % (Auto) (50 - 75 %) 59.7 Lymph % (Auto) (25 - 40 %) 30.5 Patrick % (Auto) (3 - 14 %) 6.8 Eos % (Auto) (0 - 4 %) 2.5 Baso % (Auto) (0 - 2 %) 0.5 Plt Count, EDTA (150 - 400 K/uL) 255 PUBS MCHC (31 - 37 g/dL) 33 06/14 06/15 06/15 1930 0220 0510 Chemistry Plasma Sodium (136 - 145 mmol/L) 142 Plasma Potassium (3.5 - 5.1 mmol/L) 3.4 Plasma Chloride (98 - 107 mmol/L) 104 CO2 (Enzymatic) (21 - 32 mmol/L) 25 BUN (7 - 18 mg/dL) 25 Creatinine (0.6 - 1.3 mg/dL) 0.8 Est GFR ( Amer) (mL/min) >60 Est GFR (Non-Af Amer) (mL/min) >60 Glucose (70 - 110 mg/dL) 126 Plasma Calcium (8.5 - 10.1 mg/dL) 9.1 Total Bilirubin (0.0 - 1.0 mg/dL) 0.6 AST (15 - 37 U/L) 35 ALT (12 - 78 U/L) 35 Alkaline Phosphatase (46 - 116 U/L) 74 Troponin (0.00 - 1.5 ng/mL) <0.05 Total Protein (6.4 - 8.2 g/dL) 6.9 Albumin (3.3 - 5.0 g/dL) 3.2 Urines Urine Color YELLOW Urine Appearance CLEAR Urine pH (5.0 - 8.0) 5.0 Ur Specific [place] (1.010 - 1.030) 1.025 Urine Protein (NEGATIVE) 1+ Urine Ketones (NEGATIVE) NEGATIVE Urine Blood (NEGATIVE) NEGATIVE Urine Nitrite (NEGATIVE) NEGATIVE Urine Bilirubin (NEGATIVE) NEGATIVE Urine Urobilinogen (0.2 - 1.0 EU/dL) 0.2 Ur Leukocyte Esterase (NEGATIVE) NEGATIVE Urine RBC (0 - 1 rbc/hpf) NONE SEEN Urine WBC (0 - 1 wbc/hpf) 3-5 Ur Epithelial Cells (0 - 5 EPI/hpf) 5-10 Urine Bacteria (NONE SEEN) TRACE (<1+) Urine Glucose (NEGATIVE) NEGATIVE Urine Comment CULT NOT INDICATED Microbiology Date/Time Procedure - Status Source Growth 06/15 UNK MRSA Screen - RECD NASAL Assessment and Plan Problem List 1. Chest pain Plan r/o [place] protocol. GI cocktail trial. 2. Diabetes mellitus type 2 in obese Plan stable.
--- NOTE | 2016-06-15 07:40 | NUR ---
PT PAIN AT A 2/10 TO CHEST - PRESSURE PAIN. GI COCKTAIL ORDERED BY DR Delphine UMANZOR PASSED OFF TO [facility].
--- NOTE | 2016-06-15 07:41 | NUR ---
EKG COMPLETED AND SHOWN TO DR HUNT.
--- NOTE | 2016-06-15 10:54 | NUR ---
PT HAD WHITE GI COCKTAIL EARLIER THAT TOOK AWAY CHEST PAIN. SHE HAS BEEN OOB TO VOID WITHOUT DIFFICULTY AND CURRENTLY HAS IVPB KCL RUNNING WITH IV. NO SOB OR NAUSEA. HOLDING CAFFEINE FOR LEXISCAN STRESS TEST FOR LATER THIS AFTERNOON WITH DR GRAJEDA. VS STABLE AND TELE SHOW SR WITH NO ECTOPY NOTED.
[2016-06-15] MEDS ORDERED: NOVOLIN NP100 UNITS/ SC (13:22)
[2016-06-15] MEDS ORDERED: CITALOPRAM HYDR20 MG PO (13:24)
[2016-06-15] MEDS ORDERED: GLIMEPIRIDE4 MG PO (13:24)
--- NOTE | 2016-06-15 14:02 | ED MAR SUMMARY ---
..... Medication Administration Record [facility] [address] [place] [address] Patient: MAYRA BOONE Visit ID: [id number] 55y, F Weight: 113.3 kg Height/Length: 62 in BMI: 45.7 ALLERGIES: Sulfa Antibiotics, LIsinopril Given 16:09 06/14/2016 Beni Schmid R.N. Medication Administered: ASPIRIN [PO], Dose: 325 mg Tablets PO. Medication Ordered: Aspirin PO 325 mg (NOW). Given 17:39 06/14/2016 Beni Schmid R.N. Medication Administered: NITROGLYCERIN [SL], Dose: 0.4 mg Tablets SL. Medication Ordered: NitroGLYCERIN SL 0.4 mg (NOW, x3 PRN Chest Pain). Given 17:49 06/14/2016 Beni Schmid R.N. Medication Administered: NITROGLYCERIN [SL], Dose: 0.4 mg Tablets SL. Medication Ordered: NitroGLYCERIN SL 0.4 mg (NOW, x3 PRN Chest Pain).
--- NOTE | 2016-06-15 14:02 | ED DISCHARGE INSTRUCTIONS ---
Patient: MAYRA BOONE General Instructions [facility] VisitID: [id number] [address] [place] [address] 55y, F Registration Date/Time: 06/14/2016 Chest pain. (Electronically signed by Eric Ferraro MD 06/14/2016 21:51)
--- NOTE | 2016-06-15 14:02 | ED MED RECONCILIATION SUMMARY ---
Patient: MAYRA BOONE Medication Reconciliation Report [facility] VisitID: [id number] [address] [place] [address] 55y, F Registration Date/Time: 06/14/2016 Weight: 113.3 kg Height/Length: 62 in. BMI: 45.7 ALLERGIES: LIsinopril, Sulfa Antibiotics The patient's Home Medications are listed below: THE FOLLOWING MEDICATIONS NEED TO BE RECONCILED: Atorvastatin Calcium Oral, pt does not know dose Hydrochlorothiazide Oral, pt does not know dose Losartan Potassium Oral, pt does not know dose The source(s) of the original Home Medication information: patient The following Medications were given to the patient in the Emergency Department: Aspirin [PO] PO 325 mg, administered: 06/14/2016 4:09:00 PM Nitroglycerin [SL] SL 0.4 mg, administered: 06/14/2016 5:39:00 PM Nitroglycerin [SL] SL 0.4 mg, administered: 06/14/2016 5:49:00 PM The following Medications were prescribed to the patient: None.
--- NOTE | 2016-06-15 14:02 | ED MED RECONCILIATION SUMMARY ---
Patient: MAYRA BOONE Medication Reconciliation Report [facility] VisitID: [id number] [address] [place] [address] 55y, F Registration Date/Time: 06/14/2016 Weight: 113.3 kg Height/Length: 62 in. BMI: 45.7 ALLERGIES: LIsinopril, Sulfa Antibiotics The patient's Home Medications are listed below: THE FOLLOWING MEDICATIONS NEED TO BE RECONCILED: Atorvastatin Calcium Oral, pt does not know dose Hydrochlorothiazide Oral, pt does not know dose Losartan Potassium Oral, pt does not know dose The source(s) of the original Home Medication information: patient The following Medications were given to the patient in the Emergency Department: Aspirin [PO] PO 325 mg, administered: 06/14/2016 4:09:00 PM Nitroglycerin [SL] SL 0.4 mg, administered: 06/14/2016 5:39:00 PM Nitroglycerin [SL] SL 0.4 mg, administered: 06/14/2016 5:49:00 PM The following Medications were prescribed to the patient: None.
--- NOTE | 2016-06-15 14:02 | ED DISCHARGE INSTRUCTIONS ---
Patient: MAYRA BOONE General Instructions [facility] VisitID: [id number] [address] [place] [address] 55y, F Registration Date/Time: 06/14/2016 Chest pain. (Electronically signed by Eric Ferraro MD 06/14/2016 21:51)
--- NOTE | 2016-06-15 14:02 | ED MAR SUMMARY ---
..... Medication Administration Record [facility] [address] [place] [address] Patient: MAYRA BOONE Visit ID: [id number] 55y, F Weight: 113.3 kg Height/Length: 62 in BMI: 45.7 ALLERGIES: Sulfa Antibiotics, LIsinopril Given 16:09 06/14/2016 Beni Schmid R.N. Medication Administered: ASPIRIN [PO], Dose: 325 mg Tablets PO. Medication Ordered: Aspirin PO 325 mg (NOW). Given 17:39 06/14/2016 Beni Schmid R.N. Medication Administered: NITROGLYCERIN [SL], Dose: 0.4 mg Tablets SL. Medication Ordered: NitroGLYCERIN SL 0.4 mg (NOW, x3 PRN Chest Pain). Given 17:49 06/14/2016 Beni Schmid R.N. Medication Administered: NITROGLYCERIN [SL], Dose: 0.4 mg Tablets SL. Medication Ordered: NitroGLYCERIN SL 0.4 mg (NOW, x3 PRN Chest Pain).
[2016-06-15] MEDS ORDERED: PRILOSEC20 MG PO (17:26)
--- NOTE | 2016-06-15 17:34 | Provider's Discharge Care Plan ---
Problem, Goal, Plan Problem List 1. Chest pain Goals: Improved health/wellness Instructions: Take meds as directed, Finish Lexiscan tomorrow 2. Diabetes mellitus type 2 in obese Goals: Improved health/wellness Instructions: Take meds as directed 3. GERD (gastroesophageal reflux disease) Goals: Improved health/wellness Instructions: Take meds as directed
--- NOTE | 2016-06-15 18:07 | NUR ---
DISCHARGE INSTRUCTIONS REVIEWED WITH PT. SALINE LOCK DISCONTINUED WITHOUT PROBLEMS. PT AWARE OF NEED TO RETURN TOMORROW AM TO FINISH LEXISCAN. PT DISCHARGED TO HOME WITH STAFF ESCORT.
--- NOTE | 2016-06-15 19:15 | DISCHARGE SUMMARY ---
ADMIT DATE: 06/14/2016 DISCHARGE DATE: 06/15/2016 ADMITTING DIAGNOSES: 1. Chest pain, rule out myocardial infarction 2. Diabetes mellitus 3. Hypertension 4. Obesity 5. History of gastroesophageal reflux disease 6. Hyperlipidemia DISCHARGE DIAGNOSES: 1. Chest pain, myocardial ruled out, suspect gastroesophageal reflux disease 2. Diabetes 3. Hypertension 4. Hyperlipidemia BRIEF HISTORY: The patient presented with chest pain at home, which did not improve with antacids. She was transported to the emergency department where nitroglycerin resolved her pain. The patient was admitted for rule out myocardial infarction protocol. HOSPITAL COURSE: Serial cardiac enzymes and EKGs were negative. Because of multiple risk factors, consultation was obtained with Dr. Chaudhary, Cardiology, and stress testing requested. Dr. Chaudhary performed a Lexiscan, which was negative on initial days' images and therefore, felt to be stable for discharge home, though final image pictures will be obtained as an outpatient on the day following discharge. During the hospitalization, patient was treated with pantoprazole and patient gave additional history through the hospital stay that she had GERD in the past and had some pain in the past with this; therefore, suspicion was that of her symptomatology was primarily from GERD, though she has multiple cardiac risk factors. DISCHARGE INSTRUCTIONS/MEDICATIONS: Disposition: Home. Discharge medications: Omeprazole 20 mg p.o. daily (patient to obtain [id number]), losartan 100 mg p.o. daily, hydrochlorothiazide 25 mg p.o. daily, atorvastatin 40 mg p.o. daily, NPH insulin 45 units subcutaneous b.i.d., glimepiride 4 mg p.o. b.i.d., citalopram 20 mg p.o. daily. Special instructions: Obtain final scans of Lexiscan study at [facility] on the day following discharge as scheduled. Light activity at home. Take omeprazole regularly and use antacids p.r.n. as needed. Follow up with Dr. Pagan, primary physician, within 2 weeks.
--- NOTE | 2016-06-30 13:35 | DIAGNOSTIC IMAGING REPORT ---
REFERRING PHYSICIAN/PROVIDER: Keshav Smith MD ATTENDING PHYSICIAN/PROVIDER: Daniel Chaudhary MD CONSULTING [employer]ATION ASSOCIATE: Jorge Tran MD PROCEDURE PERFORMED: Nuclear stress test INDICATION: CHEST PAIN RADIOPHARMACEUTICAL: The patient received 30.0 mCi of technetium 99 sestamibi on day one at [facility] stress. The patient received 32.0 mCi of technetium 99 sestamibi on day two which was resting. This is a 2-day stress protocol. CARDIAC STRESS: The patient was stressed according to the Lexiscan Cardiolite protocol. The resting heart rate was 76 beats per minute and the heart rate of test and was 84 beats per minute. The patient's baseline blood pressure was 168/103 mmHg. RAW DATA: There is appropriate radiotracer uptake of the LV myocardium. Motion correction software was applied. QUANTITATIVE GATED SPECT: LV wall motion is normal. LV ejection fraction is normal at 59%. The left ventricular end-diastolic diameter is 86 ml. The calculated t.i.d. is 0.91. This is within normal limits. MYOCARDIAL PERFUSION STUDY: On the stress perfusion images there is a small to moderate size with moderate intensity perfusion defect located along the distal anterolateral wall. It does not involve the apex. On the rest perfusion images the defect resolves completely. IMPRESSION: 1. This is abnormal myocardial perfusion study. There is a small to moderate sized perfusion defect that resolves completely from stress to rest. This is suggestive of myocardial ischemia. 2. Normal LV ejection fraction with normal LV wall motion. 3. Consider cardiology consultation.
== END 2016-06-15 18:00 | disposition home or self-care (01) ==
LOC: ED SRH 15:54 → TRANS SRH 17:40 → CC SRH 17:40
PROVIDERS: ADMIT Family Medicine
PROC: 4A02XM4 Measurement of Cardiac Total Activity, External Approach (ICD-10-PCS; principal; 2016-06-15)
PROC: 3E073KZ Introduction of Other Diagnostic Substance into Coronary Artery, Percutaneous Approach (ICD-10-PCS; principal; 2016-06-15)
DX: R07.9 Chest pain, unspecified (principal); R11.0 Nausea; Z82.49 Family history of ischemic heart disease and other diseases of the circulatory system; E11.65 Type 2 diabetes mellitus with hyperglycemia; Z79.4 Long term (current) use of insulin; I10 Essential (primary) hypertension; E66.9 Obesity, unspecified; Z68.42 Body mass index [BMI] 45.0-49.9, adult
CPT/HCPCS: 29230; 29244; 29251; 29253; 90004; 90074; 90098; 90100; 90616; 91320; 91556; 91672; 92132; 92235; 92530; 92610; 94001; 94060; 95059